=== PATIENT | male | born 1955 | race Caucasian/White ===

== ENCOUNTER 2024-12-14 10:16 | Outpatient (CLI) | payer MEDICARE, SELFPAY ==
--- NOTE | 2024-12-14 11:29 | P.ANES_ITS ---
Anesthesia Charges Start Date/Time Anesthesia Start Date: 12/14/24 Anesthesia Start Time: 11:04 Stop Date/Time Anesthesia Stop Date: 12/14/24 Anesthesia Stop Time: 11:25 Summary Extremes of Age - Over 70 or under 1: CHANNEL ACCOUNT MANAGER Coding CPT Codes CPT Codes: ANES LWR INTST NDSC NOS - 04181 ([id number]) P3 - PATIENT W/SEVERE SYS DISEASE, QX - CHANNEL ACCOUNT MANAGER SVC W/ MD MED DIRECTION, QK - CIRCULATION ASSISTANT 2-4 CNCRNT ANES PROC Additional Codes: Summary - Extremes of Age - Over 70 or under 1: CHANNEL ACCOUNT MANAGER ([id number])
--- NOTE | 2024-12-14 11:29 | W.ANESCHARGE ---
Anesthesia Charges Start Date/Time Anesthesia Start Date: 12/14/24 Anesthesia Start Time: 11:04 Stop Date/Time Anesthesia Stop Date: 12/14/24 Anesthesia Stop Time: 11:25 Summary Extremes of Age - Over 70 or under 1: RETAIL EQUIPMENT ASSOCIATE Coding CPT Codes CPT Codes: ANES LWR INTST NDSC NOS - [id number] ([id number]) P3 - PATIENT W/SEVERE SYS DISEASE, QX - RETAIL EQUIPMENT ASSOCIATE SVC W/ MD MED DIRECTION, QK - SAUSAGE MEAT TRIMMER 2-4 CNCRNT ANES PROC Additional Codes: Summary - Extremes of Age - Over 70 or under 1: RETAIL EQUIPMENT ASSOCIATE ([id number])
--- NOTE | 2024-12-14 13:22 | P.ANES_ITS ---
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
--- NOTE | 2024-12-14 13:22 | W.ANESCHARGE ---
Anesthesia Charges Start Date/Time Anesthesia Start Date: 12/14/24 Anesthesia Start Time: 11:04 Stop Date/Time Anesthesia Stop Date: 12/14/24 Anesthesia Stop Time: 11:25 Summary Extremes of Age - Over 70 or under 1: GOVERNMENT INSTRUCTOR Coding CPT Codes CPT Codes: ANES LWR INTST NDSC NOS - [id number] ([id number]) P3 - PATIENT W/SEVERE SYS DISEASE, QZ - GOVERNMENT INSTRUCTOR SVC W/O PHOTOGRAPHER PORTRAIT BY Additional Codes: Summary - Extremes of Age - Over 70 or under 1: GOVERNMENT INSTRUCTOR ([id number])
== END 2024-12-14 10:17 | disposition home or self-care (01) ==
LOC: OP CLINIC 10:19
PROVIDERS: PCP Family Medicine; Visit Provider Internal Medicine Gastroenterology
DX: Z12.11 Encounter for screening for malignant neoplasm of colon (principal); D12.3 Benign neoplasm of transverse colon; K57.30 Diverticulosis of large intestine without perforation or abscess without bleeding; Z86.0101 Personal history of adenomatous and serrated colon polyps
CPT/HCPCS: 00811; 45385; 88305; 99100; J2704